=== PATIENT | female | born 1990 | race Caucasian/White ===

== ENCOUNTER 2016-10-04 10:44 | Emergency (ER) | payer OTHER | END 2016-10-04 14:42 | disposition home or self-care (01) | LOC: ER1 10:44 | DX: S06.9X1A Unspecified intracranial injury with loss of consciousness of 30 minutes or less, initial encounter (principal); S00.83XA Contusion of other part of head, initial encounter; F17.210 Nicotine dependence, cigarettes, uncomplicated; Y04.2XXA Assault by strike against or bumped into by another person, initial encounter; Y92.69 Other specified industrial and construction area as the place of occurrence of the external cause; Y99.0 Civilian activity done for income or pay | CPT/HCPCS: 70450; 70486; 84703; 99284 ==

== ENCOUNTER 2021-05-01 04:05 | Emergency (ER) | payer SELFPAY ==
[~2021-05-01 04:05] MED LIST: IBUPROFEN600 MG PO
== END 2021-05-01 05:30 | disposition home or self-care (01) ==
LOC: ER1 04:05
DX: R68.84 Jaw pain (principal); F17.200 Nicotine dependence, unspecified, uncomplicated; Y04.2XXA Assault by strike against or bumped into by another person, initial encounter
CPT/HCPCS: 70150; 99284

== ENCOUNTER 2021-05-21 16:36 | Emergency (ER) | payer SELFPAY | END 2021-05-21 18:22 | disposition home or self-care (01) | LOC: ER1 16:36 | DX: S60.222A Contusion of left hand, initial encounter (principal); W19.XXXA Unspecified fall, initial encounter; F17.200 Nicotine dependence, unspecified, uncomplicated | CPT/HCPCS: 73130; 99283 ==